=== PATIENT | female | born 1990 | race Two or more races ===

== ENCOUNTER 2019-04-03 06:55 | Emergency (ER) | payer SELFPAY ==
[~2019-04-03] VITALS: Ht 167.6 cm; Wt 154.7 kg
[2019-04-03 07:03] VITALS: BP 140/70; Ht 167.6 cm; Wt 154.7 kg
== END 2019-04-03 08:29 | disposition home or self-care (01) ==
LOC: ED 06:55
DX: M54.5 Low back pain (principal)
CPT/HCPCS: J1885